=== PATIENT | male | born 1990 | race Two or more races ===

== ENCOUNTER 2020-10-13 17:04 | Emergency (ER) | payer SELFPAY ==
[~2020-10-13] VITALS: Ht 185.4 cm; Wt 79.4 kg
[2020-10-13] MEDS ORDERED: HYDROcodone-ACET 10/325MG TAB PO ONE (19:30)
[2020-10-13] MEDS ORDERED: TETANUS-DIPTH-ACEL PERTUSSIS 0.5ML SYR Tdap IM ONE (19:30)
[2020-10-13] MEDS ORDERED: AMOXICILLIN/CLAVUL 875 MG TAB PO ONE (19:30)
[2020-10-13] MEDS ORDERED: cefTRIAXone SOD 1,000 MG VL IM ONE (19:30)
[2020-10-14 01:08] VITALS: BP 131/94
== END 2020-10-14 05:16 | disposition home or self-care (01) ==
LOC: ER 17:04
DX: S02.5XXB Fracture of tooth (traumatic), initial encounter for open fracture (principal); S01.511A Laceration without foreign body of lip, initial encounter; X58.XXXA Exposure to other specified factors, initial encounter; Y93.89 Activity, other specified; Y92.89 Other specified places as the place of occurrence of the external cause; Y99.8 Other external cause status
CPT/HCPCS: 12011; 70486; 90471; 90715; 96372; 99284; J0696

== ENCOUNTER 2020-10-21 18:30 | Emergency (ER) | payer SELFPAY ==
[~2020-10-21] VITALS: Ht 182.9 cm; Wt 84.4 kg
[2020-10-21 19:10] VITALS: BP 106/72
== END 2020-10-21 20:13 | disposition home or self-care (01) ==
LOC: ER 18:30
DX: Z48.00 Encounter for change or removal of nonsurgical wound dressing (principal); K00.0 Anodontia